=== PATIENT | male | born 1950 | race Caucasian/White ===

== ENCOUNTER → 2018-03-19 14:52 | Outpatient (CLI) | payer MEDICARE, OTHER, SELFPAY | PROVIDERS: Visit Provider Physician Assistant | DX: M25.512 Pain in left shoulder (principal) ==

== ENCOUNTER → 2018-03-19 15:09 | Outpatient (CLI) | payer MEDICARE, OTHER, SELFPAY ==
--- NOTE | 2018-03-19 15:10 | DI.MRI.S_ITS ---
PROCEDURE: MR SHOULDER LT WO CON INDICATIONS: left shoulder pain TECHNIQUE: Noncontrast oblique coronal T2 fast spin echo with fat saturation, oblique sagittal T1 spin echo and T2 fast spin echo with fat saturation, axial T1 spin echo and T2 fast spin echo with fat saturation through the shoulder. COMPARISON: [facility], CR, XR SHOULDER LT MIN 2V, 03/19/2018, 15:00. FINDINGS: Image quality: Diagnostic. Rotator cuff: Low moderate grade partial-thickness tearing is identified along the bursal and articular surfaces of the distal supraspinatus tendon with corresponding increase signal of the tendon itself. Mild increased signal involving the infraspinatus tendon and subscapularis tendon is also present. No full-thickness tear the rotator cuff is evident. The teres minor tendon is intact. There is no significant atrophy of the rotator cuff muscles. Bones and bursae: No acute fracture, dislocation or suspicious osseous lesion is evident involving the osseous structures of the left shoulder. There mild degenerative changes of the glenohumeral joint. Moderate edema involving the greater tuberosity of the humeral head is probably degenerative and related to rotator cuff pathology. However, bone contusion may also have this appearance. Severe degenerative changes of the chromic clavicular joint are present with prominent undersurface osteophytes and degenerative/active marrow changes. A small amount of fluid is contained within the subacromial subdeltoid bursa. There is a small glenohumeral joint effusion. Capsule and soft tissues: Evaluation of the labrum and the glenohumeral ligaments is difficult without intra-articular contrast. However, there is a moderate-sized posterior labral tear identified that extends from at least the 12 o'clock position to the 5 o'clock position. No large paralabral cysts or detachment or fragments are identified. The long head of the biceps tendon is normally positioned within the bicipital groove, but is noted to be thickened and edematous along its intra-articular course. Prominent thickening of the joint capsule is best appreciated through the region of the rotator interval. No acute injuries are evident involving the glenohumeral ligaments. IMPRESSION: 1. Low moderate grade partial-thickness tearing and tendinopathy of the distal supraspinatus tendon. 2. Mild infraspinatus and subscapularis tendinopathy without significant tearing. 3. Severe degenerative changes of the acromioclavicular joint may be resulting in subacromial impingement and clinical correlation is recommended. 4. Moderate-sized posterior labral tear. 5. Moderate tendinopathy and possible intrasubstance partial-thickness tearing of the long head of the biceps tendon. 6. Thickening of the glenohumeral joint capsule is nonspecific. Clinical correlation to exclude adhesive capsulitis is recommended. Dictated by: Williams Santillan M.D. on 03/19/2018 at 15:00 Approved by: Williams Santillan M.D. on 03/19/2018 at 15:03
--- NOTE | 2018-03-19 15:11 | DI.RAD.S_ITS ---
PROCEDURE: XR SHOULDER LT MIN 2V INDICATIONS: LEFT shoulder pain TECHNIQUE: 3 views of the shoulder were acquired. COMPARISON: None. FINDINGS: Bones: No fractures or dislocations. No suspicious bony lesions. Visualized ribs appear intact. Moderate a.c. joint osteoarthritis Soft tissues: No suspicious soft tissue calcifications except for mild calcific tendinitis at the supraspinatus insertion seen on the external rotation view. IMPRESSION: No acute trauma found. Moderate a.c. joint osteoarthritis. Chronic impingement on the normal course of the supraspinatus tendon likely is present and there is a slight degree of peripheral calcific tendinitis at the supraspinatus insertion Dictated by: Alfa Adam M.D. on 03/19/2018 at 15:32 Approved by: Alfa Adam M.D. on 03/19/2018 at 15:33
== END ==
PROVIDERS: Visit Provider Physician Assistant
DX: M25.512 Pain in left shoulder (principal); M75.112 Incomplete rotator cuff tear or rupture of left shoulder, not specified as traumatic; M19.012 Primary osteoarthritis, left shoulder; S43.492A Other sprain of left shoulder joint, initial encounter; M75.92 Shoulder lesion, unspecified, left shoulder
CPT/HCPCS: 73030; 73221

== ENCOUNTER → 2020-09-27 10:15 | Outpatient (CLI) | payer MEDICARE, OTHER, SELFPAY ==
[2020-09-27 11:43] LABS: Hemoglobin A1C% w Est Avg Glu 5.4 % (4.0-6.0)
[2020-09-27 12:00] LABS: BUN Creatinine Ratio 19.4 (6-22); Blood Urea Nitrogen 18 mg/dL (9-20); Calcium 9.5 mg/dL (8.4-10.2); Carbon Dioxide 30 mmol/L (22-32); Chloride 107 mmol/L (98-107); Cholesterol 236 mg/dL (140-199); Estimated Glomerular Filt Rate > 60.0 mL/min (>60); Glucose 90 mg/dL (80-110); HDL Cholesterol 59 mg/dL (40-60); HEMOLYSIS < 15 (0-50); LDL Cholesterol Calculated 158 mg/dL (<100); Potassium 4.1 mmol/L (3.4-5.1); Sodium 141 mmol/L (137-145); Triglycerides 96 mg/dL (35-150)
[2020-09-27 12:11] LABS: Vitamin D 25 Hydroxy (D3) 50.6 ng/mL (30.0-100.0)
[2020-09-27 12:32] LABS: Prostate Specific Antigen Scrn 2.72 ng/mL (0.1-4.0)
== END ==
PROVIDERS: PCP Student in an Organized Health Care Education/Training Program; Referring Provider Student in an Organized Health Care Education/Training Program; Visit Provider Student in an Organized Health Care Education/Training Program
DX: E78.2 Mixed hyperlipidemia (principal); R73.9 Hyperglycemia, unspecified; I10 Essential (primary) hypertension; Z12.5 Encounter for screening for malignant neoplasm of prostate; E55.9 Vitamin D deficiency, unspecified
CPT/HCPCS: 36415; 80048; 80061; 82306; 83036; G0103

== ENCOUNTER → 2020-11-23 09:12 | Outpatient (CLI) | payer MEDICARE, OTHER, SELFPAY ==
[2020-11-23 10:21] LABS: Cholesterol 206 mg/dL (140-199); HDL Cholesterol 57 mg/dL (40-60); LDL Cholesterol Calculated 132 mg/dL (<100); Triglycerides 83 mg/dL (35-150)
== END ==
PROVIDERS: PCP Student in an Organized Health Care Education/Training Program; Referring Provider Student in an Organized Health Care Education/Training Program; Visit Provider Student in an Organized Health Care Education/Training Program
DX: E78.2 Mixed hyperlipidemia (principal)
CPT/HCPCS: 36415; 80061

== ENCOUNTER → 2021-01-22 12:29 | Outpatient (CLI) | payer MEDICARE, OTHER, SELFPAY ==
[2021-01-22 13:34] LABS: Cholesterol 214 mg/dL (140-199); HDL Cholesterol 75 mg/dL (40-60); LDL Cholesterol Calculated 114 mg/dL (<100); Triglycerides 125 mg/dL (35-150)
== END ==
PROVIDERS: PCP Student in an Organized Health Care Education/Training Program; Referring Provider Student in an Organized Health Care Education/Training Program; Visit Provider Student in an Organized Health Care Education/Training Program
DX: E78.2 Mixed hyperlipidemia (principal)
CPT/HCPCS: 36415; 80061

== ENCOUNTER → 2022-01-13 08:45 | Outpatient (CLI) | payer MEDICARE, OTHER, SELFPAY ==
[2022-01-13 10:15] LABS: BUN Creatinine Ratio 14.3 (6-22); Blood Urea Nitrogen 12 mg/dL (9-20); Calcium 8.9 mg/dL (8.4-10.2); Carbon Dioxide 30 mmol/L (22-32); Chloride 105 mmol/L (98-107); Estimated Glomerular Filt Rate > 60 mL/min (>60); Glucose 104 mg/dL (80-110); HEMOLYSIS < 15 (0-50); Potassium 4.9 mmol/L (3.4-5.1); Sodium 140 mmol/L (137-145)
[2022-01-13 10:43] LABS: Prostate Specific Antigen Scrn 3.05 ng/mL (0.1-4.0)
[2022-01-13 17:03] LABS: Hep C Virus Ab w/Reflex Quant NEGATIVE s/c (NEGATIVE)
== END ==
PROVIDERS: PCP Student in an Organized Health Care Education/Training Program; Referring Provider Student in an Organized Health Care Education/Training Program; Visit Provider Student in an Organized Health Care Education/Training Program
DX: Z12.5 Encounter for screening for malignant neoplasm of prostate (principal); I10 Essential (primary) hypertension; Z11.59 Encounter for screening for other viral diseases
CPT/HCPCS: 36415; 80048; 86803; G0103

== ENCOUNTER → 2023-07-22 06:58 | Outpatient (CLI) | payer MEDICARE, SELFPAY ==
[2023-07-22 08:24] LABS: Add Manual Diff / Slide Review NO; Basophils Absolute Auto 100 /uL (0-100); Basophils Percent Auto 0.9 % (0-2); Eosinophils Absolute Auto 300 /uL (0-450); Eosinophils Percent Auto 5.5 % (2-4); Hematocrit 41.1 % (41-53); Hemoglobin 13.9 g/dL (13.5-17.5); Lymphocytes Absolute Auto 2700 /uL (1100-4500); Lymphocytes Percent Auto 45.5 % (25-40); Mean Corpuscular HGB Conc 33.8 % (30-36); Mean Corpuscular Hemoglobin 29.7 PG (26-34); Mean Corpuscular Volume 87.9 fL (80-100); Monocytes Absolute Auto 500 /uL (0-900); Monocytes Percent Auto 8.9 % (3-14); Neutrophils Absolute Auto 2300 /uL (1500-7000); Neutrophils Percent Auto 39.2 % (50-75); Platelet Count 320 X10^3/uL (150-400); Red Blood Cell Count 4.67 X10^6/uL (4.5-5.9); Red Cell Distribution Width 14.4 % (11.6-14.8); White Blood Cell Count 5.9 X10^3/uL (4.5-11.0)
[2023-07-22 08:57] LABS: Alanine Aminotransferase 20 IU/L (<50); Albumin 4.3 g/dL (3.5-5.0); Albumin Globulin Ratio 1.5 (1.0-2.8); Alkaline Phosphatase 54 U/L (38-126); Aspartate Aminotransferase 28 IU/L (17-59); BUN Creatinine Ratio 16.3 (6-22); Bilirubin Total 0.6 mg/dL (0.2-1.3); Blood Urea Nitrogen 15 mg/dL (9-20); Calcium 9.1 mg/dL (8.4-10.2); Carbon Dioxide 29 mmol/L (22-32); Chloride 108 mmol/L (98-107); Cholesterol 170 mg/dL (140-199); Estimated Glomerular Filt Rate > 60 mL/min (>60); Globulin 2.9 g/dL (1.7-4.1); Glucose 113 mg/dL (80-110); HDL Cholesterol 54 mg/dL (40-60); HEMOLYSIS < 15 (0-50); LDL Cholesterol Calculated 99 mg/dL (<100); Potassium 4.9 mmol/L (3.4-5.1); Sodium 140 mmol/L (137-145); Total Protein 7.2 g/dL (6.3-8.2); Triglycerides 87 mg/dL (35-150)
[2023-07-22 09:11] LABS: TSH w/ Reflex to FT4 1.55 uIU/mL (0.47-4.68)
[2023-07-22 09:16] LABS: Prostate Specific Antigen Scrn 3.43 ng/mL (0.1-4.0)
[2023-07-23 16:53] LABS: Hep C Virus Ab w/Reflex Quant NEGATIVE s/c (NEGATIVE)
== END ==
LOC: LAB 06:59
PROVIDERS: Pediatrics; PCP Family Medicine; Referring Provider Family Medicine; Visit Provider Family Medicine
DX: Z00.00 Encounter for general adult medical examination without abnormal findings (principal); I10 Essential (primary) hypertension; Z12.5 Encounter for screening for malignant neoplasm of prostate; E78.2 Mixed hyperlipidemia
CPT/HCPCS: 36415; 80053; 80061; 84443; 85025; 86803; G0103

== ENCOUNTER 2023-07-28 07:54 | Day surgery (SDC) | payer MEDICARE, SELFPAY ==
--- NOTE | 2023-07-28 | PATH_ITS ---
[facility] Accession Number: [id number] No. of containers..01 Tissue . 01 Material submitted: . colon - ASCENDING COLON POLYP . 01 Diagnosis: ASCENDING COLON POLYP: Colonic mucosa with prominent benign lymphoid aggregate. Negative for dysplasia or malignancy. Additional step sections examined. MRV 08/03/2023 1445 Local . 01 Electronically signed: . Nathen Cordero MD, PhD, Pathologist NPI- [id number] . 01 Gross description: . Received in formalin with two patient identifiers and ascending colon polyp, is a single monroe soft tissue fragment 0.4 cm in greatest dimension. Submitted entirely in cassette A1. ([id number]) /EMILE 07/29/2023 1122 Local . 01 Pathologist provided ICD-10: K63.5 . 01 CPT . 286260 Specimen Comment: A courtesy copy of this report has been sent to [phone] Performed at: [address] [facility] [address], [place], [place] [id number] MD Marcin Heredia MD Phone: [phone]
[2023-07-28 08:25] VITALS: BP 152/70; PULSE 51; RESP 16; TEMP 35.8; O2SAT 100
--- NOTE | 2023-07-28 09:10 | P.HP_ITS ---
History of Present Illness History of Present Illness Date Patient Seen: 07/28/23 Time Patient Seen: 09:10 Chief complaint: SDC Narrative: 73-year-old male here for 1st time screening colonoscopy. No abdominal concerns today. No family history of intestinal malignancy [facility] Medical History Preventative health care Social History Smoking Status: Never smoker Meds Home Medications and Allergies Home Medications Medication Instructions Recorded Confirmed Type aspirin 81 mg tablet,delayed 81 mg PO DAILY 09/28/20 07/28/23 History release pravastatin 40 mg tablet 40 mg PO BEDTIME #90 tabs 02/10/23 07/28/23 Rx lisinopril 10 mg tablet 10 mg PO DAILY hypertension #90 05/11/23 07/28/23 Rx tabs Allergies Allergy/AdvReac Type Severity Reaction Status Date / Time No Known Drug Allergies Allergy Verified 01/13/23 08:57 Exam Vital Signs (past 8 hours): - 07/28/23 08:25 Temperature 96.4 F L Pulse Rate 51 L Respiratory Rate 16 Blood Pressure 152/70 H Pulse Oximetry 100 Oxygen Delivery Method Room Air Oxygen Delivery Method Room Air Narrative Exam Narrative: General adult man alert oriented no acute distress Chest nonlabored respiration Extremities warm well perfused Assessment & Plan Assessment & Plan narrative: The patient requires colorectal screening and colonoscopy is recommended. Technical details were discussed. Risks, benefits, alternatives explained. Risks including but not limited to myocardial infarction, aspiration, bleeding, pain, missed lesion, incomplete examination, need for further radiographic studies, intestinal injury, and need for major abdominal surgery were discussed. All questions were answered to their satisfaction, and they are in agreement with this plan.
[2023-07-28 09:30] VITALS: BP 88/47; PULSE 55; RESP 14; TEMP 36.6; O2SAT 97
[2023-07-28 09:35] VITALS: BP 92/51; PULSE 53; RESP 14; O2SAT 98
--- NOTE | 2023-07-28 09:35 | P.OP.COLON_ITS ---
Operative Date/Time/Diagnoses Date of procedure: 07/28/23 Time of procedure: 09:35 Pre-op diagnosis: Colorectal screening Post-op diagnosis: other (Colonic polyp times) Procedure & Clinicians Study performed: Colonoscopy and polypectomy Same procedure as scheduled: Yes Indications: Colorectal screening Surgeon: Herson Casper Procedure Notes Procedure in detail: The history and physical was performed/updated and the patient is ASA class is 2. The procedure was discussed in detail with the patient. Potential risks complications including infection, bleeding, missed diagnosis, perforation, need for surgery, and were explained. Their questions were answered and informed consent was obtained. Patient was brought to the procedure room and placed standard monitoring equipment. The patient's vital signs were monitored continuously throughout the entire procedure. Prior to starting time-out was performed. The patient was placed in the left lateral recumbent position. Procedural sedation was administered by anesthesia. Examination began with a thorough inspection of the perianal area there was no evidence of fissures, fistulae, external hemorrhoids or cutaneous malignancy. The colonoscopy scope was then placed into the anal canal and was advanced to the cecum, which was identified by the ileocecal valve, the appendiceal orifice and the confluence of the taenia. The scope was then slowly withdrawn examining colon thoroughly in all directions, irrigating it of any residual stool. The scope was retroflexed within the rectum The patient tolerated the procedure well. They will be discharged once criteria are met. The prep was of good/excellent quality. The withdrawl time was 6 minutes. FINDINGS * Ascending colon 5 mm polyp removed with biopsy forceps * Mild diverticulosis of descending colon Specimen(s): other (Ascending colon polyp) Impression: Colonic polyp x1 Post-procedure Recommendations: High fiber diet Plan for aftercare: Follow up dependent on pathology findings likely 5 years Disposition: same day surgery
[2023-07-28 09:40] VITALS: BP 98/53; PULSE 52; RESP 15; O2SAT 99
[2023-07-28 09:45] VITALS: BP 107/55; PULSE 55; RESP 19; TEMP 36.5; O2SAT 99
[2023-07-28 09:52] VITALS: BP 122/56; PULSE 54; RESP 16; TEMP 36.5; O2SAT 98
== END 2023-07-28 10:10 | disposition home or self-care (01) ==
PROVIDERS: PCP Family Medicine; Referring Provider Surgery; Visit Provider Surgery
PROC: 0DJD8ZZ Inspection of Lower Intestinal Tract, Via Natural or Artificial Opening Endoscopic (ICD-10-PCS; CPT 45378; principal; 2023-07-28 08:45)
DX: Z12.11 Encounter for screening for malignant neoplasm of colon (principal); K57.30 Diverticulosis of large intestine without perforation or abscess without bleeding; K63.5 Polyp of colon
CPT/HCPCS: 45380; J2704

== ENCOUNTER → 2024-07-19 09:43 | Outpatient (CLI) | payer MEDICARE, SELFPAY ==
[2024-07-19 10:56] LABS: Add Manual Diff / Slide Review NO; Basophils Absolute Auto 0 /uL (0-100); Basophils Percent Auto 0.8 % (0-2); Eosinophils Absolute Auto 200 /uL (0-450); Eosinophils Percent Auto 4.5 % (2-4); Hematocrit 39.7 % (41-53); Hemoglobin 13.2 g/dL (13.5-17.5); Lymphocytes Absolute Auto 2300 /uL (1100-4500); Lymphocytes Percent Auto 46.1 % (25-40); Mean Corpuscular HGB Conc 33.3 % (30-36); Mean Corpuscular Hemoglobin 28.3 PG (26-34); Mean Corpuscular Volume 84.8 fL (80-100); Monocytes Absolute Auto 400 /uL (0-900); Monocytes Percent Auto 8.3 % (3-14); Neutrophils Absolute Auto 2000 /uL (1500-7000); Neutrophils Percent Auto 40.3 % (50-75); Platelet Count 251 X10^3/uL (150-400); Red Blood Cell Count 4.69 X10^6/uL (4.5-5.9); Red Cell Distribution Width 14.7 % (11.6-14.8); White Blood Cell Count 4.9 X10^3/uL (4.5-11.0)
[2024-07-19 11:34] LABS: Alanine Aminotransferase 25 IU/L (<50); Albumin 4.1 g/dL (3.5-5.0); Albumin Globulin Ratio 1.4 (1.0-2.8); Alkaline Phosphatase 55 U/L (38-126); Aspartate Aminotransferase 28 IU/L (17-59); BUN Creatinine Ratio 19.3 (6-22); Bilirubin Total 0.6 mg/dL (0.2-1.3); Blood Urea Nitrogen 17 mg/dL (9-20); Calcium 9.2 mg/dL (8.4-10.2); Carbon Dioxide 26 mmol/L (22-32); Chloride 107 mmol/L (98-107); Cholesterol 178 mg/dL (140-199); Estimated Glomerular Filt Rate > 60 mL/min (>60); Glucose 100 mg/dL (70-99); HDL Cholesterol 46 mg/dL (40-60); HEMOLYSIS < 15 (0-50); LDL Cholesterol Calculated 122 mg/dL (<100); Potassium 4.6 mmol/L (3.4-5.1); Sodium 139 mmol/L (137-145); Total Protein 7.1 g/dL (6.3-8.2); Triglycerides 50 mg/dL (35-150)
[2024-07-19 12:27] LABS: Vitamin B12 325 pg/mL (239-931)
[2024-07-20 07:09] LABS: PSA Free % 35.8 % (.); PSA, Total 2.4 ng/mL (0.0-4.0)
== END ==
PROVIDERS: PCP Family Medicine; Referring Provider Family Medicine; Visit Provider Family Medicine
DX: Z00.00 Encounter for general adult medical examination without abnormal findings (principal); I10 Essential (primary) hypertension; E78.2 Mixed hyperlipidemia; N40.0 Benign prostatic hyperplasia without lower urinary tract symptoms; G62.9 Polyneuropathy, unspecified; Z12.5 Encounter for screening for malignant neoplasm of prostate
CPT/HCPCS: 36415; 80053; 80061; 82607; 84153; 84154; 84443; 85025